=== PATIENT | female | born 1975 | race Two or more races ===

== ENCOUNTER 2017-02-16 12:23 | Emergency (ER) | payer BC ==
[~2017-02-16] VITALS: Ht 157.5 cm; Wt 49.9 kg
[2017-02-16 12:23] VITALS: BP 83/65
[2017-02-16] MEDS ORDERED: IBUPROFEN 400 MG TABLET ONE (13:20)
[2017-02-16] MEDS ORDERED: IBUPROFEN 400 MG TABLET PO ONE (13:30)
== END 2017-02-16 14:22 | disposition home or self-care (01) ==
LOC: ER 12:26
DX: S92.512A Displaced fracture of proximal phalanx of left lesser toe(s), initial encounter for closed fracture (principal); F32.9 Major depressive disorder, single episode, unspecified; W22.8XXA Striking against or struck by other objects, initial encounter; Y93.01 Activity, walking, marching and hiking; Y92.89 Other specified places as the place of occurrence of the external cause; Y99.8 Other external cause status
CPT/HCPCS: 73660; 99284; A4606; Z7610

== ENCOUNTER 2022-03-28 02:38 | Emergency (ER) | payer SELFPAY ==
[~2022-03-28] VITALS: Ht 157.5 cm; Wt 56.7 kg
--- NOTE | 2022-03-28 03:00 | NUR ---
URINE COLLECTED AND SENT TO LAB
--- NOTE | 2022-03-28 03:11 | NUR ---
BIB SELF. C/O RLQ ABD PAIN RADIATING TO BACK FOR 2 DAYS. TO BED 1. CONNECTED TO MONITOR. A/OX4
[2022-03-28] MEDS ORDERED: MORPHINE SULFATE INJ 2 MG/ML DISP.SYRIN IV ONE (03:30)
[2022-03-28] MEDS ORDERED: IV NS 0.9% 1,000 ML BAG IV ONE (03:30)
[2022-03-28] MEDS ORDERED: KETOROLAC TROMETHAMINE 15 MG/ML VIAL ONE (03:37)
[2022-03-28 03:54] LABS: BASOPHILS % (AUTO) 0.4 % (0.0-2.0); EOSINOPHILS % (AUTO) 1.3 % (0.0-6.0); HEMATOCRIT 37 % (33-45); HEMOGLOBIN 12.1 g/dL (11.5-14.8); LYMPHOCYTES # (AUTO) 1.7 K/uL (0.8-4.8); LYMPHOCYTES % (AUTO) 16.2 % (20.0-44.0); MEAN CORPUSCULAR HGB CONC 33 g/dl (31.0-36.0); MEAN CORPUSCULAR VOLUME 82 fL (82-100); MONOCYTES # (AUTO) 0.4 K/uL (0.1-1.30); NEUTROPHILS # (AUTO) 8.2 K/uL (1.8-8.9); NEUTROPHILS % (AUTO) 78.1 % (43.0-81.0); PLATELET COUNT (AUTO) 443 K/uL (150-450); RED BLOOD CELL COUNT(AUTO) 4.44 MIL/uL (4.0-5.2); WHITE BLOOD COUNT (AUTO) 10.4 K/uL (4.3-11.0)
[2022-03-28] MEDS ORDERED: KETOROLAC TROMETHAMINE INJ 30 MG/ML VIAL IV ONE (04:00)
[2022-03-28 04:05] LABS: CALCIUM, SERUM 8.7 mg/dL (8.5-10.1); CREATININE 0.8 mg/dL (0.6-1.3)
[2022-03-28 04:11] LABS: ALBUMIN 3.8 g/dL (3.4-5.0); BILIRUBIN,DIRECT 0.1 mg/dL (0.0-0.2); BILIRUBIN,TOTAL 0.3 mg/dL (0.2-1.0); TOTAL PROTEIN, SERUM 7.3 g/dL (6.4-8.2)
[2022-03-28 04:15] LABS: BILIRUBIN,URINE NEGATIVE (NEGATIVE); COLOR,URINE YELLOW (YELLOW); LEUKOCYTE ESTERASE ,URINE NEGATIVE (NEGATIVE); NITRITE, URINE NEGATIVE (NEGATIVE); PROTEIN,URINE NEGATIVE (NEGATIVE); UGLUCOSE NEGATIVE (NEGATIVE); UROBILINOGEN,URINE 0.2 EU/dL (0.2)
[2022-03-28] MEDS ORDERED: IOHEXOL-300 100 ML VIAL IV ONE (04:26)
[2022-03-28] MEDS ORDERED: CT SWABBABLE VALVE TRANS SET 1 EA INFUS.SET MC ONE (04:26)
[2022-03-28] MEDS ORDERED: IV NS 0.9% 250 ML IV ONE (04:26)
--- NOTE | 2022-03-28 04:28 | NUR ---
PATIENT TO CT SCAN
--- NOTE | 2022-03-28 04:51 | NUR ---
BACK FROM CT
[2022-03-28] MEDS ORDERED: AMOX-430 PO (05:50)
[2022-03-28] MEDS ORDERED: AMOX/CLAVULANATE 875 MG TABLET PO ONE (06:00)
[2022-03-28] MEDS ORDERED: AMOX/CLAVULANATE 875 MG TABLET ONE (06:04)
--- NOTE | 2022-03-28 06:12 | NUR ---
Patient discharged to home in stable condition. Written and verbal after care instructions given. Patient verbalizes understanding of instruction.
[2022-03-28 06:13] VITALS: BP 98/45
== END 2022-03-28 06:13 | disposition home or self-care (01) ==
LOC: ER 02:40
DX: K57.32 Diverticulitis of large intestine without perforation or abscess without bleeding (principal); R10.31 Right lower quadrant pain
CPT/HCPCS: 99285; 74177; 96374; 96361; 85025; 80048; 87086; 83690; 80076; 84703; 81003; 36415; 84702; J7030; J7050; Q9967; J1885

== ENCOUNTER → 2023-01-02 | Emergency (ER) | payer BC ==
[~2023-01-02] VITALS: Ht 157.5 cm; Wt 59.9 kg
[~2023-01-02] MED LIST: AMOX-430 PO
[2023-01-02 11:20] LABS: APPEARANCE,URINE CLEAR (CLEAR); BILIRUBIN,URINE NEGATIVE (NEGATIVE); BLOOD, URINE NEGATIVE Ery/uL (NEGATIVE); COLOR,URINE YELLOW (YELLOW); KETONES,URINE NEGATIVE (NEGATIVE); LEUKOCYTE ESTERASE ,URINE NEGATIVE (NEGATIVE); NITRITE, URINE NEGATIVE (NEGATIVE); PH,URINE 5.5 (5.0-8.0); PROTEIN,URINE NEGATIVE (NEGATIVE); UGLUCOSE NEGATIVE (NEGATIVE); UROBILINOGEN,URINE 0.2 EU/dL (0.2)
[2023-01-02 11:21] LABS: PREGNANCY TEST URINE QUAL NEGATIVE (NEGATIVE)
[2023-01-02 11:22] LABS: CALCIUM, SERUM 9.2 mg/dL (8.5-10.1); CREATININE 0.8 mg/dL (0.6-1.3); POTASSIUM 3.5 mmol/L (3.5-5.1)
[2023-01-02 11:27] LABS: BASOPHILS % (AUTO) 0.7 % (0.0-2.0); EOSINOPHILS # (AUTO) 0.2 K/uL (0.0-0.7); EOSINOPHILS % (AUTO) 2.9 % (0.0-6.0); HEMATOCRIT 38 % (33-45); HEMOGLOBIN 12.8 g/dL (11.5-14.8); LYMPHOCYTES # (AUTO) 1.8 K/uL (0.8-4.8); LYMPHOCYTES % (AUTO) 35.2 % (20.0-44.0); MEAN CORPUSCULAR HEMOGLOBIN 28 PG (26.0-33.0); MEAN CORPUSCULAR HGB CONC 33 g/dl (31.0-36.0); MEAN CORPUSCULAR VOLUME 83 fL (82-100); MONOCYTES # (AUTO) 0.3 K/uL (0.1-1.30); NEUTROPHILS # (AUTO) 2.9 K/uL (1.8-8.9); NEUTROPHILS % (AUTO) 56.2 % (43.0-81.0); PLATELET COUNT (AUTO) 313 K/uL (150-450); RED BLOOD CELL COUNT(AUTO) 4.65 MIL/uL (4.0-5.2); RED CELL DISTRIBUTION WIDTH 13.3 % (11.5-15.0); WHITE BLOOD COUNT (AUTO) 5.2 K/uL (4.3-11.0)
[2023-01-02 11:29] LABS: ALBUMIN 3.7 g/dL (3.4-5.0); BILIRUBIN,DIRECT 0.1 mg/dL (0.0-0.2); BILIRUBIN,TOTAL 0.3 mg/dL (0.2-1.0); TOTAL PROTEIN, SERUM 7.1 g/dL (6.4-8.2)
[2023-01-02 13:21] VITALS: BP 114/79; TEMP 98.3; O2SAT 100
== END | disposition home or self-care (01) ==
LOC: ER 10:19
DX: R10.31 Right lower quadrant pain (principal)
CPT/HCPCS: 36415; 80048-TC; 80076-TC; 83690-TC; 84702-TC; 84703-TC; 85025-TC; 87086-TC